=== PATIENT | female | born 1970 | race American Indian/Alaskan Native ===

== ENCOUNTER 2018-07-12 09:08 | Emergency (ER) | payer OTHER ==
[2018-07-12 09:26] VITALS: RESP 18
--- NOTE | 2018-07-12 09:51 | ED PDOC ---
Arrival/HPI - General Chief Complaint: ENT Problem Time Seen by Provider: 07/12/18 09:47 Historian: Patient - History of Present Illness Narrative History of Present Illness (Text): 07/12/18 09:52 47yr old female presents today with 3 day history of sore throat, nasal congestion and cough with clear sputum. pt denies cp or sob. no vomiting/ diarrhea. pt denies difficulty breathing or swallowing. pt states for the past 3 days she developed burning sensation in throat, with feeling of mucus in the back of the throat causing her to cough. pt denies sick contacts. no medications have been taken at home. no other complaints. Past Medical History - Provider Review Nursing Documentation Reviewed: Yes - Travel History Have you recently traveled outside [place] w/in the past 3 mons?: No - Tetanus Immunization Tetanus Immunization: Unknown - Cardiac Hx Cardiac Disorders: Yes Hx Hypertension: Yes - Pulmonary Hx Respiratory Disorders: No - Neurological Hx Neurological Disorder: No - HEENT Hx HEENT Disorder: No - Renal Hx Renal Disorder: No - Endocrine/Metabolic Hx Endocrine Disorders: No - Hematological/Oncological Hx Blood Disorders: No - Integumentary Hx Dermatological Disorder: No - Musculoskeletal/Rheumatological Hx Musculoskeletal Disorders: No - Gastrointestinal Hx Gastrointestinal Disorders: No - Genitourinary/Gynecological Hx Genitourinary Disorders: No - Psychiatric Hx Psychophysiologic Disorder: Yes Hx Anxiety: Yes Hx Depression: Yes Hx Substance Use: No - Surgical History Hx Gastric Bypass Surgery: Yes (2005) Hx Hysterectomy: Yes (2006) - Anesthesia Hx Anesthesia: Yes Family/Social History - Physician Review Nursing Documentation Reviewed: Yes Family/Social History: Unknown Family HX Smoking Status: Never Smoked Hx Alcohol Use: No Hx Substance Use: No Allergies/Home Meds Allergies/Adverse Reactions: Allergies lisinopril Allergy (Verified 07/12/18 09:50) ANGIOEDEMA Review of Systems - Review of Systems Constitutional: absent: Fatigue, Fevers ENT: Sore Throat, Sinus Congestion Respiratory: Cough. absent: SOB, Wheezing Cardiovascular: absent: Chest Pain, Palpitations Gastrointestinal: absent: Abdominal Pain, Nausea, Vomiting Musculoskeletal: absent: Arthralgias Skin: absent: Rash Neurological: absent: Headache, Dizziness Psychiatric: absent: Anxiety, Depression Physical Exam Vital Signs Reviewed: Yes Vital Signs Temp Pulse Resp BP Pulse Ox 07/12/18 09:09 98.5 F 71 18 131/93 H 98 Temperature: Afebrile Blood Pressure: Hypertensive Pulse: Regular Respiratory Rate: Normal Appearance: Positive for: Well-Appearing, Non-Toxic, Comfortable Pain Distress: None Mental Status: Positive for: Alert and Oriented X 3 - Systems Exam Head: Present: Atraumatic Extroacular Muscles: Present: EOMI Conjunctiva: Present: Normal Ears: Present: Normal, NORMAL TM Mouth: Present: Moist Mucous Membranes, Normal Lips, Normal Tounge, Normal Teeth. No: Drooling, Trismus Pharnyx: Present: ERYTHEMA. No: EXUDATE, TONSILS ENLARGED, Peritonsilar Swelling, Uvular Deviation, Muffled/Hoarse Voice, Strider, Soft Palate/Uvular Edema Nose (External): Present: Atraumatic Nose (Internal): Present: Normal Inspection Neck: Present: Normal Range of Motion, Trachea Midline. No: Lymphadenopathy Respiratory/Chest: Present: Clear to Auscultation, Good Air Exchange. No: Respiratory Distress, Accessory Muscle Use Cardiovascular: Present: Regular Rate and Rhythm, Normal S1, S2. No: Murmurs Neurological: Present: GCS=15 Skin: Present: Warm, Dry, Normal Color Psychiatric: Present: Alert, Oriented x 3 Medical Decision Making ED Course and Treatment: 07/12/18 09:54 Patient is nontoxic well appearing in no distress. Vital signs are stable Tolerating p.o. fluids and solids Motrin 600 mg p.o. zithromax po I advised follow up with primary care physician within the next 2 days, advised to increase fluids take medications as prescribed and return if symptoms worsen persist or if new symptoms develop Patient verbalizes understanding of discharge instructions and need for immediate followup. all aspects of this case were discussed the attending of record. IMPRESSION; pharyngitis, cough Motrin every 6 hours as needed for pain/fever reduction Increase fluids zithromax daily x 4 days. Flonase; 2 sprays each nostril once daily. Follow up primary care physician within the next 2 days Saltwater gargles, throat lozenges Return if symptoms worsen persist or if new symptoms develop Disposition/Present on Arrival - Present on Arrival Any Indicators Present on Arrival: No History of DVT/PE: No History of Uncontrolled Diabetes: No Urinary Catheter: No History of Decub. Ulcer: No History Surgical Site Infection Following: None - Disposition Have Diagnosis and Disposition been Completed?: Yes Diagnosis: Pharyngitis, Cough Disposition: HOME/ ROUTINE Disposition Time: 09:51 Patient Plan: Discharge Condition: GOOD Discharge Instructions (ExitCare): Cough in Adults, Sore Throat, Adult (DC) Additional Instructions: Motrin every 6 hours as needed for pain/fever reduction Increase fluids zithromax daily x 4 days. Flonase; 2 sprays each nostril once daily. Follow up primary care physician within the next 2 days Saltwater gargles, throat lozenges Return if symptoms worsen persist or if new symptoms develop Prescriptions: Azithromycin [Zithromax] 250 mg PO DAILY #4 tab Fluticasone Nasal [Flonase] 2 spr NS DAILY #1 spr Ibuprofen [Motrin] 600 mg PO Q6H PRN #20 tab PRN Reason: pain/fever reduction Referrals: [facility] [Outside] - Follow up with primary Sunita Crowe MD [Medical Doctor] - Follow up with primary José Miguel Person DO [Staff Provider] - Follow up with primary
[2018-07-12 10:30] VITALS: BP 122/84; PULSE 76; TEMP 98.4; O2SAT 99
== END 2018-07-12 10:26 | disposition home or self-care (01) ==
LOC: ED 09:08
DX: J02.9 Acute pharyngitis, unspecified (principal); R05 Cough